=== PATIENT | female | born 2000 | race American Indian/Alaskan Native ===

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

== ENCOUNTER 2022-04-14 11:22 | Emergency (ER) | payer OTHER ==
[~2022-04-14] VITALS: Ht 167.6 cm; Wt 77.3 kg
[2022-04-14] MEDS ORDERED: SODIUM CHLORIDE 0.9% 1,000 ML IV ONE (11:45)
[2022-04-14] MEDS ORDERED: MAG HYDROX/AL HYDROX/SIMETH 30 ML SUSP UDCUP PO ONE (11:45)
[2022-04-14] MEDS ORDERED: KETOROLAC TROMETHAMINE 30 MG/ML VIAL IVP ONE (11:45)
[2022-04-14] MEDS ORDERED: FAMOTIDINE 10 MG/ML 2 ML VIAL IVP ONE (11:45)
[2022-04-14 12:07] LABS: BASOPHILS % (AUTO) 0.5 % (0.0-2.0); EOSINOPHILS % (AUTO) 2.8 % (1.0-6.0); HEMATOCRIT 36.8 % (36-46); HEMOGLOBIN 12.7 g/dL (12.0-16.0); LYMPHOCYTES # (AUTO) 1.9 K/uL (1.0-4.8); MEAN CORPUSCULAR HEMOGLOBIN 29.6 pg (26.0-34.0); MEAN CORPUSCULAR HGB CONC 34.4 G/dL (31.0-37.0); MEAN CORPUSCULAR VOLUME 86 fL (80-100); MONOCYTES # (AUTO) 0.7 K/uL (0.1-1.0); MONOCYTES % (AUTO) 8.6 % (2.0-9.0); NEUTROPHILS # (AUTO) 5.2 K/uL (1.8-7.7); NEUTROPHILS % (AUTO) 64.1 % (40.0-70.0); PLATELET COUNT (AUTO) 247 K/uL (150-450); RED BLOOD CELL COUNT(AUTO) 4.28 MIL/uL (4.00-5.20); RED CELL DISTRIBUTION WIDTH 14.2 % (11.5-14.5)
[2022-04-14 12:12] LABS: ANION GAP 8 mmol/L (8-16); CALCIUM, TOTAL 8.5 mg/dL (8.8-10.5); CARBON DIOXIDE 25 mmol/L (22-29); CHLORIDE 105 mmol/L (98-107); CREATININE 0.71 mg/dL (0.60-1.30); GLOMERULAR FILTR. RATE CALC > 60 mL/min (>60); GLUCOSE,RANDOM 98 mg/dL (70-110); POTASSIUM 4.2 mmol/L (3.5-5.1); SODIUM SERUM 138 mmol/L (136-145); UREA NITROGEN, BLOOD 17 mg/dL (7-18)
[2022-04-14] MEDS ORDERED: SODIUM CHLORIDE 0.9% 100 ML ONE (12:21)
[2022-04-14] MEDS ORDERED: IOHEXOL 350 MG/ML 100 ML VIAL ONE (12:21)
[2022-04-14 12:23] LABS: ALANINE AMINOTRANSFERASE 35 U/L (12-78); ALBUMIN 3.4 g/dL (3.4-5.0); ALKALINE PHOSPHATASE 78 U/L (46-116); ASPARTATE AMINOTRANSFERASE 25 U/L (15-37); BILIRUBIN,TOTAL 0.2 mg/dL (0.1-1.0); HCG,QUANTITATIVE < 1 mIU/mL (0-6); LIPASE 164 U/L (73-393); TOTAL PROTEIN, SERUM 6.5 g/dL (6.4-8.2)
[2022-04-14 13:45] VITALS: BP 133/76
== END 2022-04-14 14:25 | disposition home or self-care (01) ==
LOC: EMS 11:22
DX: K80.20 Calculus of gallbladder without cholecystitis without obstruction (principal); J45.909 Unspecified asthma, uncomplicated; F17.210 Nicotine dependence, cigarettes, uncomplicated; F12.90 Cannabis use, unspecified, uncomplicated; Z87.440 Personal history of urinary (tract) infections; Z87.898 Personal history of other specified conditions
CPT/HCPCS: 36415; 74177; 76700; 80053; 83690; 84702; 85025; 96361; 96374; 96375; 99285; J1885; J3490; J7030; J7050; Q9967

== ENCOUNTER 2022-04-15 18:16 | Emergency (ER) | payer OTHER ==
[~2022-04-15] VITALS: Ht 167.6 cm; Wt 77.3 kg
[2022-04-15] MEDS ORDERED: SODIUM CHLORIDE 0.9% 1,000 ML IV ONE (18:45)
[2022-04-15] MEDS ORDERED: KETOROLAC TROMETHAMINE 30 MG/ML VIAL IVP ONE (18:45)
[2022-04-15 18:58] LABS: BASOPHILS % (AUTO) 0.3 % (0.0-2.0); EOSINOPHILS % (AUTO) 1.4 % (1.0-6.0); HEMOGLOBIN 12.9 g/dL (12.0-16.0); LYMPHOCYTES # (AUTO) 1.6 K/uL (1.0-4.8); MEAN CORPUSCULAR HEMOGLOBIN 29.4 pg (26.0-34.0); MEAN CORPUSCULAR VOLUME 86 fL (80-100); MONOCYTES # (AUTO) 0.6 K/uL (0.1-1.0); MONOCYTES % (AUTO) 6.2 % (2.0-9.0); NEUTROPHILS # (AUTO) 7.8 K/uL (1.8-7.7); NEUTROPHILS % (AUTO) 76.1 % (40.0-70.0); PLATELET COUNT (AUTO) 258 K/uL (150-450); RED CELL DISTRIBUTION WIDTH 14.4 % (11.5-14.5)
[2022-04-15 19:08] LABS: ANION GAP 10 mmol/L (8-16); CALCIUM, TOTAL 8.6 mg/dL (8.8-10.5); CARBON DIOXIDE 27 mmol/L (22-29); CHLORIDE 103 mmol/L (98-107); CREATININE 0.72 mg/dL (0.60-1.30); GLOMERULAR FILTR. RATE CALC > 60 mL/min (>60); GLUCOSE,RANDOM 84 mg/dL (70-110); POTASSIUM 3.7 mmol/L (3.5-5.1); SODIUM SERUM 140 mmol/L (136-145); UREA NITROGEN, BLOOD 17 mg/dL (7-18)
[2022-04-15 19:13] LABS: ALANINE AMINOTRANSFERASE 56 U/L (12-78); ALBUMIN 3.8 g/dL (3.4-5.0); ALKALINE PHOSPHATASE 80 U/L (46-116); ASPARTATE AMINOTRANSFERASE 35 U/L (15-37); BILIRUBIN,TOTAL 0.2 mg/dL (0.1-1.0); LIPASE 156 U/L (73-393); TOTAL PROTEIN, SERUM 7.2 g/dL (6.4-8.2)
[2022-04-15 21:15] VITALS: BP 109/72
== END 2022-04-15 21:31 | disposition home or self-care (01) ==
LOC: EMS 18:20
DX: K80.70 Calculus of gallbladder and bile duct without cholecystitis without obstruction (principal); J45.909 Unspecified asthma, uncomplicated; F17.210 Nicotine dependence, cigarettes, uncomplicated; F12.90 Cannabis use, unspecified, uncomplicated; Z87.440 Personal history of urinary (tract) infections
CPT/HCPCS: 36415; 80053; 83690; 85025; 96361; 96374; 99283; J1885

== ENCOUNTER 2022-05-18 06:11 | Inpatient (IN) | payer MEDICAID, OTHER ==
[~2022-05-18] VITALS: Ht 167.6 cm; Wt 171.3 kg
[2022-05-18] MEDS ORDERED: FLUO10CA24 PO (06:32)
[2022-05-18 07:58] LABS: BASOPHILS % (AUTO) 0.3 % (0.0-2.0); EOSINOPHILS % (AUTO) 0.1 % (1.0-6.0); HEMATOCRIT 40.1 % (36-46); HEMOGLOBIN 13.8 g/dL (12.0-16.0); LYMPHOCYTES # (AUTO) 2.4 K/uL (1.0-4.8); MEAN CORPUSCULAR HEMOGLOBIN 29.4 pg (26.0-34.0); MEAN CORPUSCULAR HGB CONC 34.3 G/dL (31.0-37.0); MEAN CORPUSCULAR VOLUME 86 fL (80-100); MONOCYTES # (AUTO) 1.2 K/uL (0.1-1.0); MONOCYTES % (AUTO) 9.1 % (2.0-9.0); NEUTROPHILS # (AUTO) 9.8 K/uL (1.8-7.7); NEUTROPHILS % (AUTO) 72.5 % (40.0-70.0); PLATELET COUNT (AUTO) 386 K/uL (150-450); RED BLOOD CELL COUNT(AUTO) 4.68 MIL/uL (4.00-5.20)
[2022-05-18 08:04] LABS: ANION GAP 12 mmol/L (8-16); CALCIUM, TOTAL 9.6 mg/dL (8.8-10.5); CARBON DIOXIDE 25 mmol/L (22-29); CHLORIDE 100 mmol/L (98-107); CREATININE 0.81 mg/dL (0.60-1.30); GLOMERULAR FILTR. RATE CALC > 60 mL/min (>60); GLUCOSE,RANDOM 92 mg/dL (70-110); POTASSIUM 3.5 mmol/L (3.5-5.1); SODIUM SERUM 137 mmol/L (136-145); UREA NITROGEN, BLOOD 14 mg/dL (7-18)
[2022-05-18 08:14] LABS: SALICYLATE < 0.2 mg/dL (2.8-20.0)
[2022-05-18 08:19] LABS: ALANINE AMINOTRANSFERASE 35 U/L (12-78); ALBUMIN 4.2 g/dL (3.4-5.0); ALKALINE PHOSPHATASE 80 U/L (46-116); ASPARTATE AMINOTRANSFERASE 26 U/L (15-37); BILIRUBIN,TOTAL 1.3 mg/dL (0.1-1.0); HCG,QUANTITATIVE < 1 mIU/mL (0-6); THYROID STIMULATING HORMONE 0.96 uIU/mL (0.36-3.74); TOTAL PROTEIN, SERUM 7.9 g/dL (6.4-8.2)
[2022-05-18 08:20] LABS: ACETAMINOPHEN < 2 mcg/mL (10-30)
[2022-05-18 08:32] LABS: COVID AG,FIA SOURCE NASOPHARYNGEAL
[2022-05-18] MEDS ORDERED: LORazepam 2 MG TABLET PO ONE (08:45)
[2022-05-18 09:38] LABS: AMPHET/METH SCREEN,URINE POSITIVE (NEGATIVE); BARBITURATE SCREEN, URINE NEGATIVE (NEGATIVE); BENZODIAZEPINES SCREEN,URINE NEGATIVE (NEGATIVE); CANNABINOID SCREEN,URINE POSITIVE (NEGATIVE); COCAINE SCREEN,URINE POSITIVE (NEGATIVE); METHADONE SCREEN, URINE NEGATIVE (NEGATIVE); OPIATE SCREEN,URINE NEGATIVE (NEGATIVE); PHENCYCLIDINE SCREEN,URINE NEGATIVE (NEGATIVE)
[2022-05-18] MEDS ORDERED: HALOPERIDOL 5 MG TABLET PO PRN (12:15)
[2022-05-18 14:15] VITALS: BP 103/60
[2022-05-18 16:10] VITALS: BP 107/76
[2022-05-18] MEDS: LORazepam 2 MG TABLET PO PRN (19:04)
[2022-05-18] MEDS ORDERED: LOPERAMIDE HCL 2 MG CAPSULE PO PRN (20:30)
[2022-05-18] MEDS ORDERED: ACETAMINOPHEN 325 MG TABLET PO PRN (20:30)
[2022-05-18] MEDS ORDERED: BACITRACIN 28 GM OINTMENT TP PRN (20:30)
[2022-05-18] MEDS ORDERED: ONDANSETRON HCL 4 MG TABLET PO PRN (20:30)
[2022-05-18] MEDS ORDERED: MAGNESIUM HYDROXIDE SUSPENSION 30 ML UDCUP PO PRN (20:30)
[2022-05-18] MEDS ORDERED: DOCUSATE SODIUM 100 MG CAPSULE PO PRN (20:30)
[2022-05-18] MEDS ORDERED: CloNIDine HCL 0.1 MG TABLET PO PRN (20:30)
[2022-05-18] MEDS ORDERED: MAG HYDROX/AL HYDROX/SIMETH ES 30 ML SUSPENSION UDCUP PO PRN (20:30)
[2022-05-18] MEDS ORDERED: OMEPRAZOLE 20 MG CAPSULE PO PRN (20:30)
[2022-05-18] MEDS ORDERED: IBUPROFEN 600 MG TABLET PO PRN (20:30)
[2022-05-18] MEDS ORDERED: BENZOCAINE/MENTHOL LOZENGE PO PRN (20:30)
[2022-05-18] MEDS ORDERED: PETROLATUM,WHITE 28 GM JELLY TP PRN (20:30)
[2022-05-18] MEDS ORDERED: ALBUTEROL SULFATE HFA 90 MCG/PUFF 8 GM INHALER IH PRN (20:30)
[2022-05-19] MEDS: LORazepam 2 MG TABLET PO PRN ×2 (06:53→19:02)
[2022-05-19 08:00] VITALS: BP 109/60
[2022-05-19 17:14] VITALS: BP 107/72
[2022-05-19] MEDS ORDERED: FLUO20CA36 PO (18:41)
[2022-05-19 19:02] VITALS: BP 115/87
[2022-05-19] MEDS: ZOLPIDEM TARTRATE 10 MG TABLET PO PRN (20:31)
[2022-05-20 08:02] VITALS: BP 117/58
[2022-05-20] MEDS: CITALOPRAM HYDROBROMIDE 20 MG TABLET PO SCH (09:10)
[2022-05-20] MEDS: DIVALPROEX SODIUM 500 MG DR TABLET PO SCH ×2 (10:50→16:31)
[2022-05-20 16:42] VITALS: BP 105/74
[2022-05-20] MEDS: LORazepam 2 MG TABLET PO PRN (16:59)
[2022-05-20] MEDS: ZOLPIDEM TARTRATE 10 MG TABLET PO PRN (23:00)
[2022-05-21] MEDS: CITALOPRAM HYDROBROMIDE 20 MG TABLET PO SCH (09:06)
[2022-05-21] MEDS: DIVALPROEX SODIUM 500 MG DR TABLET PO SCH (09:06)
[2022-05-21] MEDS: LORazepam 2 MG TABLET PO PRN (09:08)
[2022-05-21 11:06] VITALS: BP 142/86
[2022-05-21] MEDS ORDERED: DIVA-112 PO (13:56)
[2022-05-21] MEDS ORDERED: CITA-144 PO (13:56)
== END 2022-05-21 15:15 | disposition home or self-care (01) | DRG 754 ==
LOC: EMS 06:12 → 3EI 12:35
PROVIDERS: ADMIT Psychiatry & Neurology Psychiatry; ATTEND Psychiatry & Neurology Psychiatry
DX: F32.9 Major depressive disorder, single episode, unspecified (principal); D72.829 Elevated white blood cell count, unspecified; F15.10 Other stimulant abuse, uncomplicated; F41.9 Anxiety disorder, unspecified; S41.112A Laceration without foreign body of left upper arm, initial encounter; T40.5X2A Poisoning by cocaine, intentional self-harm, initial encounter; Z20.822 Contact with and (suspected) exposure to COVID-19; X78.1XXA Intentional self-harm by knife, initial encounter; G47.00 Insomnia, unspecified; J45.909 Unspecified asthma, uncomplicated; Y93.89 Activity, other specified; Y92.098 Other place in other non-institutional residence as the place of occurrence of the external cause; Y99.8 Other external cause status; Z79.899 Other long term (current) drug therapy
CPT/HCPCS: 80053; 84443; 84702; 85025; 99285; G0480; G0481

== ENCOUNTER 2022-06-18 08:02 | Inpatient (IN) | payer MEDICAID, OTHER ==
[~2022-06-18] VITALS: Ht 167.6 cm; Wt 70.5 kg
[~2022-06-18 08:02] MED LIST changes: -ALBU8.5H8 IH; +CITA-144 PO; +DIVA-112 PO
[2022-06-18] MEDS ORDERED: KETOROLAC TROMETHAMINE 30 MG/ML VIAL IM ONE (08:30)
[2022-06-18] MEDS ORDERED: ONDANSETRON HCL 4 MG TABLET PO ONE (08:30)
[2022-06-18] MEDS ORDERED: ACETAMINOPHEN 500 MG TABLET PO ONE (08:30)
[2022-06-18] MEDS ORDERED: MAG HYDROX/AL HYDROX/SIMETH 30 ML SUSP UDCUP PO ONE (08:30)
[2022-06-18] MEDS ORDERED: FAMOTIDINE 20 MG TABLET PO ONE (08:30)
[2022-06-18 08:39] LABS: BASOPHILS % (AUTO) 0.6 % (0.0-2.0); EOSINOPHILS % (AUTO) 4.2 % (1.0-6.0); HEMATOCRIT 39.4 % (36-46); HEMOGLOBIN 13.4 g/dL (12.0-16.0); LYMPHOCYTES # (AUTO) 2.8 K/uL (1.0-4.8); LYMPHOCYTES % (AUTO) 36.5 % (22.0-44.0); MEAN CORPUSCULAR HEMOGLOBIN 29.6 pg (26.0-34.0); MEAN CORPUSCULAR HGB CONC 34.1 G/dL (31.0-37.0); MEAN CORPUSCULAR VOLUME 87 fL (80-100); MONOCYTES # (AUTO) 0.6 K/uL (0.1-1.0); MONOCYTES % (AUTO) 7.5 % (2.0-9.0); NEUTROPHILS # (AUTO) 3.9 K/uL (1.8-7.7); NEUTROPHILS % (AUTO) 51.2 % (40.0-70.0); PLATELET COUNT (AUTO) 272 K/uL (150-450); RED BLOOD CELL COUNT(AUTO) 4.53 MIL/uL (4.00-5.20); RED CELL DISTRIBUTION WIDTH 13.7 % (11.5-14.5)
[2022-06-18 09:02] LABS: ANION GAP 8 mmol/L (8-16); CALCIUM, TOTAL 9.2 mg/dL (8.8-10.5); CARBON DIOXIDE 29 mmol/L (22-29); CHLORIDE 103 mmol/L (98-107); CREATININE 0.81 mg/dL (0.60-1.30); GLOMERULAR FILTR. RATE CALC > 60 mL/min (>60); GLUCOSE,RANDOM 93 mg/dL (70-110); POTASSIUM 4.2 mmol/L (3.5-5.1); SODIUM SERUM 140 mmol/L (136-145); UREA NITROGEN, BLOOD 18 mg/dL (7-18)
[2022-06-18 09:06] LABS: ALANINE AMINOTRANSFERASE 500 U/L (12-78); ALBUMIN 3.7 g/dL (3.4-5.0); ALKALINE PHOSPHATASE 115 U/L (46-116); ASPARTATE AMINOTRANSFERASE 170 U/L (15-37); BILIRUBIN,TOTAL 0.3 mg/dL (0.1-1.0); HCG,QUANTITATIVE < 1 mIU/mL (0-6); LIPASE 218 U/L (73-393); TOTAL PROTEIN, SERUM 7.2 g/dL (6.4-8.2)
[2022-06-18 09:47] LABS: AMPHET/METH SCREEN,URINE NEGATIVE (NEGATIVE); BARBITURATE SCREEN, URINE NEGATIVE (NEGATIVE); BENZODIAZEPINES SCREEN,URINE NEGATIVE (NEGATIVE); CANNABINOID SCREEN,URINE POSITIVE (NEGATIVE); COCAINE SCREEN,URINE NEGATIVE (NEGATIVE); METHADONE SCREEN, URINE NEGATIVE (NEGATIVE); OPIATE SCREEN,URINE NEGATIVE (NEGATIVE)
[2022-06-18 09:49] LABS: PHENCYCLIDINE SCREEN,URINE NEGATIVE (NEGATIVE)
[2022-06-18 10:09] LABS: CREATINE KINASE, TOTAL ONLY 73 U/L (26-192)
[2022-06-18] MEDS ORDERED: PIPERACILLIN/TAZO 3.375 GM/D5W 50 ML IV ONE (10:15)
[2022-06-18] MEDS ORDERED: SODIUM CHLORIDE 0.9% 1,000 ML IV ONE (10:45)
[2022-06-18] MEDS ORDERED: ACETAMINOPHEN 325 MG TABLET PO PRN (10:45)
[2022-06-18] MEDS ORDERED: GADOTERATE MEGLUMINE 10 MMOL/20 ML VIAL IVP ONE (10:56)
[2022-06-18 11:17] LABS: APPEARANCE,URINE CLEAR (CLEAR); BILIRUBIN,URINE NEGATIVE (NEGATIVE); GLUCOSE, URINE (UA) NEGATIVE (NEGATIVE); KETONES,URINE NEGATIVE (NEGATIVE); LEUKOCYTE ESTERASE ,URINE TRACE (NEGATIVE); NITRATE,URINE NEGATIVE (NEGATIVE); OCCULT BLOOD,URINE NEGATIVE (NEGATIVE); PH,URINE 6.5 (5.0-8.0); PROTEIN,URINE NEGATIVE (NEGATIVE); SPECIFIC GRAVITIY, URINE 1.022 (1.003-1.030); UROBILINOGEN,URINE <=1.0 mg/dL (<=1.0)
[2022-06-18 11:46] LABS: BACTERIA,URINE None Seen /HPF (None Seen); RBC,URINE None Seen /HPF (0-2); SQUAMOUS EPITHELIAL CELL,UR Moderate /LPF (None Seen); WBC,URINE 0-2 /HPF (0-5)
[2022-06-18] MEDS: PANTOPRAZOLE SODIUM 40 MG/VIAL IVP SCH (11:51)
[2022-06-18 12:58] VITALS: BP 107/61
[2022-06-18] MEDS: MORPHINE SULFATE 2 MG/ML SYRINGE IVP PRN (13:22)
[2022-06-18] MEDS: ONDANSETRON HCL 4 MG/2 ML VIAL IVP PRN (13:32)
[2022-06-18 16:00] VITALS: BP_SYST 142; BP_SYST 95; BP_DIAS 45; BP_DIAS 69
[2022-06-18 16:18] LABS: COVID AG,FIA SOURCE NASOPHARYNGEAL
[2022-06-18 20:00] VITALS: BP 101/60
[2022-06-18] MEDS: DOCUSATE SODIUM 100 MG CAPSULE PO SCH (21:00)
[2022-06-19] MEDS: MORPHINE SULFATE 2 MG/ML SYRINGE IVP PRN ×3 (02:39→20:17)
[2022-06-19] MEDS: ONDANSETRON HCL 4 MG/2 ML VIAL IVP PRN (02:39)
[2022-06-19 05:00] VITALS: BP 99/74
[2022-06-19] MEDS ORDERED: SODIUM CHLORIDE 0.9% 0 ML ONE (05:28)
[2022-06-19] MEDS ORDERED: IOHEXOL 240 MG/ML 20 ML VIAL ONE (05:28)
[2022-06-19] MEDS ORDERED: LIDOCAINE 2%/EPI 1:200,000/PF 20 ML VIAL ONE (05:28)
[2022-06-19] MEDS ORDERED: BUPIVACAINE HCL/PF 0.5% 30 ML VIAL ONE (05:28)
[2022-06-19] MEDS ORDERED: RINGERS SOLUTION,LACTATED 1,000 ML IV ONE (06:00)
[2022-06-19] MEDS ORDERED: SUGAMMADEX SODIUM 200 MG/2 ML VIAL IVP ONE (07:59)
[2022-06-19 08:02] VITALS: BP 102/76
[2022-06-19] MEDS ORDERED: ACETAMINOPHEN 500 MG TABLET PO PRN (08:15)
[2022-06-19] MEDS ORDERED: ONDANSETRON HCL 4 MG/2 ML VIAL IVP PRN (08:15)
[2022-06-19] MEDS ORDERED: IBUPROFEN 800 MG TABLET PO PRN (08:15)
[2022-06-19] MEDS ORDERED: HYDROCODONE/ACETAMINOPHEN 5-325 MG TABLET PO PRN (08:15)
[2022-06-19] MEDS: MetroNIDAZOLE 500 MG/NACL 100 ML IV SCH ×2 (08:23→17:35)
[2022-06-19] MEDS ORDERED: FentaNYL CITRATE PF 100 MCG/2 ML VIAL IVP PRN (08:45)
[2022-06-19] MEDS ORDERED: HYDROmorphone 2 MG/ML VIAL IVP PRN (08:45)
[2022-06-19] MEDS ORDERED: FentaNYL CITRATE PF 100 MCG/2 ML VIAL ONE (08:48)
[2022-06-19] MEDS: DOCUSATE SODIUM 100 MG CAPSULE PO SCH (09:00)
[2022-06-19] MEDS ORDERED: SODIUM CHLORIDE 0.9% 250 ML IV ONE (09:31)
[2022-06-19] MEDS: CeFAZolin 1 GM/DEXTROSE 50 ML IV SCH ×2 (09:40→16:46)
[2022-06-19] MEDS ORDERED: MIDAZOLAM HCL 2 MG/2 ML VIAL IVP ONE (12:00)
[2022-06-19] MEDS ORDERED: FentaNYL CITRATE PF 100 MCG/2 ML VIAL IVP ONE (12:00)
[2022-06-19] MEDS: PANTOPRAZOLE SODIUM 40 MG/VIAL IVP SCH (12:03)
[2022-06-19 15:53] VITALS: BP 111/60
[2022-06-19 20:00] VITALS: BP 108/53
[2022-06-19] MEDS ORDERED: OXYGEN THERAPY IH SCH (20:00)
== END 2022-06-19 20:30 | disposition home or self-care (01) | DRG 263 ==
LOC: EMS 08:02 → 6S 10:20
PROVIDERS: ADMIT Internal Medicine; ATTEND Internal Medicine
PROC: 0FT44ZZ Resection of Gallbladder, Percutaneous Endoscopic Approach (ICD-10-PCS; principal; 2022-06-19 07:00)
DX: K80.12 Calculus of gallbladder with acute and chronic cholecystitis without obstruction (principal); F31.9 Bipolar disorder, unspecified; R74.01 Elevation of levels of liver transaminase levels; Z20.822 Contact with and (suspected) exposure to COVID-19; J45.909 Unspecified asthma, uncomplicated; Z79.899 Other long term (current) drug therapy; Z82.5 Family history of asthma and other chronic lower respiratory diseases; Z83.3 Family history of diabetes mellitus
CPT/HCPCS: 74183; 76700; 80053; 81001; 82550; 83605; 83690; 84484; 84702; 85025; 87081; 93005; 99285; C9113; G0378; J0690; J1885; J2250; J2270; J2405; J2543; J3010; J3490; J7030; J7050; J7120; Q0162; Q9966; Q9967

== ENCOUNTER 2022-07-11 10:57 | Emergency (ER) | payer OTHER ==
[~2022-07-11] VITALS: Ht 167.6 cm; Wt 77.3 kg
[2022-07-11 12:47] VITALS: BP 110/70
== END 2022-07-11 13:22 | disposition home or self-care (01) ==
LOC: EMS 10:57
DX: S31.113D Laceration without foreign body of abdominal wall, right lower quadrant without penetration into peritoneal cavity, subsequent encounter (principal); Z48.02 Encounter for removal of sutures; F32.9 Major depressive disorder, single episode, unspecified; F12.90 Cannabis use, unspecified, uncomplicated; F10.20 Alcohol dependence, uncomplicated; F11.90 Opioid use, unspecified, uncomplicated; J45.909 Unspecified asthma, uncomplicated; X58.XXXD Exposure to other specified factors, subsequent encounter; Z87.440 Personal history of urinary (tract) infections; Z87.19 Personal history of other diseases of the digestive system
CPT/HCPCS: 99282; Z7502

== ENCOUNTER 2022-08-13 00:27 | Inpatient (IN) | payer OTHER ==
[~2022-08-13] VITALS: Ht 167.6 cm; Wt 72.7 kg
[2022-08-13] MEDS ORDERED: MethylPREDNISolone SOD SUCC 125 MG/2 ML VIAL IVP ONE (01:15)
[2022-08-13] MEDS ORDERED: SODIUM CHLORIDE 0.9% 1,000 ML IV ONE ×2 (01:30→09:45)
[2022-08-13 01:38] LABS: BASOPHILS % (AUTO) 0.4 % (0.0-2.0); EOSINOPHILS % (AUTO) 1.3 % (1.0-6.0); HEMATOCRIT 35.6 % (36-46); HEMOGLOBIN 11.8 g/dL (12.0-16.0); LYMPHOCYTES # (AUTO) 3.5 K/uL (1.0-4.8); LYMPHOCYTES % (AUTO) 39.7 % (22.0-44.0); MEAN CORPUSCULAR HEMOGLOBIN 29.4 pg (26.0-34.0); MEAN CORPUSCULAR HGB CONC 33.2 G/dL (31.0-37.0); MEAN CORPUSCULAR VOLUME 88 fL (80-100); MONOCYTES # (AUTO) 0.6 K/uL (0.1-1.0); MONOCYTES % (AUTO) 6.7 % (2.0-9.0); NEUTROPHILS # (AUTO) 4.6 K/uL (1.8-7.7); NEUTROPHILS % (AUTO) 51.9 % (40.0-70.0); PLATELET COUNT (AUTO) 279 K/uL (150-450); RED BLOOD CELL COUNT(AUTO) 4.03 MIL/uL (4.00-5.20); RED CELL DISTRIBUTION WIDTH 13.9 % (11.5-14.5)
[2022-08-13 01:48] LABS: ANION GAP 1 mmol/L (8-16); CALCIUM, TOTAL 8.1 mg/dL (8.8-10.5); CARBON DIOXIDE 26 mmol/L (22-29); CHLORIDE 103 mmol/L (98-107); CREATININE 0.97 mg/dL (0.60-1.30); GLUCOSE,RANDOM 207 mg/dL (70-110); POTASSIUM 3.1 mmol/L (3.5-5.1); SODIUM SERUM 130 mmol/L (136-145); UREA NITROGEN, BLOOD 13 mg/dL (7-18)
[2022-08-13 01:49] LABS: GLOMERULAR FILTR. RATE CALC > 60 mL/min (>60)
[2022-08-13 01:54] LABS: ALANINE AMINOTRANSFERASE 20 U/L (12-78); ALBUMIN 3.1 g/dL (3.4-5.0); ALKALINE PHOSPHATASE 62 U/L (46-116); ASPARTATE AMINOTRANSFERASE 16 U/L (15-37); BILIRUBIN,TOTAL 0.2 mg/dL (0.1-1.0); TOTAL PROTEIN, SERUM 5.7 g/dL (6.4-8.2)
[2022-08-13] MEDS ORDERED: EPINEPHrine 1:1,000 [1 MG/ML] VIAL ONE (04:23)
[2022-08-13] MEDS ORDERED: SODIUM CHLORIDE 0.9% 100 ML ONE (04:23)
[2022-08-13] MEDS ORDERED: FAMOTIDINE 10 MG/ML 2 ML VIAL ONE (04:23)
[2022-08-13] MEDS ORDERED: FAMOTIDINE 40 MG in SODIUM CHLORIDE 0.9% 100 ML IV ONE (04:30)
[2022-08-13] MEDS ORDERED: EPINEPHrine 1:1,000 [1 MG/ML] VIAL IM ONE (05:00)
[2022-08-13] MEDS ORDERED: PRED-554 PO (06:04)
[2022-08-13] MEDS ORDERED: EPIN0.3P3 IM (06:05)
[2022-08-13] MEDS ORDERED: DIPH25CA85 PO (06:06)
[2022-08-13 09:20] LABS: APPEARANCE,URINE CLEAR (CLEAR); BILIRUBIN,URINE NEGATIVE (NEGATIVE); GLUCOSE, URINE (UA) 70-100 mg/dL (NEGATIVE); KETONES,URINE NEGATIVE (NEGATIVE); LEUKOCYTE ESTERASE ,URINE NEGATIVE (NEGATIVE); NITRATE,URINE NEGATIVE (NEGATIVE); OCCULT BLOOD,URINE NEGATIVE (NEGATIVE); PROTEIN,URINE NEGATIVE (NEGATIVE); SPECIFIC GRAVITIY, URINE 1.021 (1.003-1.030); UROBILINOGEN,URINE <=1.0 mg/dL (<=1.0)
[2022-08-13 09:33] LABS: RBC,URINE 0-2 /HPF (0-2)
[2022-08-13 09:34] LABS: BACTERIA,URINE Few /HPF (None Seen); SQUAMOUS EPITHELIAL CELL,UR Few /LPF (None Seen); WBC,URINE 0-2 /HPF (0-5)
[2022-08-13] MEDS ORDERED: POTASSIUM CHL 10 MEQ/WATER 50 ML IV PRN (09:45)
[2022-08-13] MEDS ORDERED: ACETAMINOPHEN 325 MG TABLET PO PRN (09:45)
[2022-08-13] MEDS: PANTOPRAZOLE SODIUM 40 MG/VIAL IVP SCH (09:45)
[2022-08-13] MEDS ORDERED: DEXTROSE 50%-WATER 25 GM/50 ML SYRINGE IVP PRN (09:45)
[2022-08-13] MEDS ORDERED: LORazepam 2 MG/ML VIAL IVP PRN (09:45)
[2022-08-13] MEDS ORDERED: ONDANSETRON HCL 4 MG/2 ML VIAL IVP PRN (09:45)
[2022-08-13] MEDS ORDERED: INSULIN LISPRO 100 UNITS/ML SQ PRN (09:45)
[2022-08-13] MEDS ORDERED: POTASSIUM CHLORIDE 20 MEQ ER TABLET PO PRN (09:45)
[2022-08-13] MEDS ORDERED: DiphenhydrAMINE HCL 50 MG/ML VIAL IVP ONE (10:45)
[2022-08-13] MEDS: MethylPREDNISolone SOD SUCC 40 MG/ML VIAL IVP SCH ×3 (12:02→23:10)
[2022-08-13 13:47] LABS: COVID AG,FIA SOURCE NASAL SWAB
[2022-08-13] MEDS: DiphenhydrAMINE HCL 50 MG/ML VIAL IVP PRN ×2 (14:59→17:24)
[2022-08-13 15:14] VITALS: BP 129/72
[2022-08-13] MEDS: HEPARIN SODIUM,PORCINE 5,000 UNITS/ML VIAL SQ SCH ×2 (17:24→23:11)
[2022-08-13] MEDS: DOCUSATE SODIUM 100 MG CAPSULE PO SCH (20:14)
[2022-08-13 20:16] LABS: GLUCOMETER DEV NAME(LOC) 5S.2B; GLUCOSE,POINT OF CARE 119 MG/DL (70-110)
[2022-08-13 20:17] VITALS: BP 118/81
[2022-08-13 21:17] LABS: GLUCOMETER DEV NAME(LOC) 5S.2B; GLUCOSE,POINT OF CARE 117 MG/DL (70-110)
[2022-08-13] MEDS ORDERED: FAMOTIDINE 10 MG/ML 2 ML VIAL IVP ONE (22:00)
[2022-08-13] MEDS ORDERED: CETIRIZINE HCL 10 MG TABLET PO ONE (22:00)
[2022-08-14 00:50] VITALS: BP 105/48
[2022-08-14 04:13] VITALS: BP 112/52
[2022-08-14] MEDS: MethylPREDNISolone SOD SUCC 40 MG/ML VIAL IVP SCH ×2 (05:59→12:14)
[2022-08-14 06:36] LABS: GLUCOMETER DEV NAME(LOC) 5S.2B; GLUCOSE,POINT OF CARE 114 MG/DL (70-110)
[2022-08-14 07:34] VITALS: BP 126/69
[2022-08-14 07:36] LABS: ANION GAP 5 mmol/L (8-16); CALCIUM, TOTAL 9.3 mg/dL (8.8-10.5); CARBON DIOXIDE 28 mmol/L (22-29); CHLORIDE 107 mmol/L (98-107); GLUCOSE,RANDOM 116 mg/dL (70-110); POTASSIUM 3.8 mmol/L (3.5-5.1); SODIUM SERUM 140 mmol/L (136-145); UREA NITROGEN, BLOOD 5 mg/dL (7-18)
[2022-08-14 07:45] LABS: GLOMERULAR FILTR. RATE CALC > 60 mL/min (>60)
[2022-08-14] MEDS: HEPARIN SODIUM,PORCINE 5,000 UNITS/ML VIAL SQ SCH ×2 (08:16→16:00)
[2022-08-14] MEDS: PANTOPRAZOLE SODIUM 40 MG/VIAL IVP SCH (08:16)
[2022-08-14] MEDS: DOCUSATE SODIUM 100 MG CAPSULE PO SCH (08:30)
[2022-08-14] MEDS ORDERED: FAMOTIDINE 10 MG/ML 2 ML VIAL IVP SCH (09:00)
[2022-08-14 10:42] VITALS: BP 118/74
[2022-08-14] MEDS: DiphenhydrAMINE HCL 50 MG/ML VIAL IVP PRN (12:14)
== END 2022-08-14 16:40 | disposition home or self-care (01) | DRG 916 ==
LOC: EMS 00:28 → 5S 13:09 → 5N 14:51
PROVIDERS: ADMIT Internal Medicine; ATTEND Internal Medicine
DX: T78.2XXA Anaphylactic shock, unspecified, initial encounter (principal); E87.6 Hypokalemia; F31.9 Bipolar disorder, unspecified; F41.9 Anxiety disorder, unspecified; Z20.822 Contact with and (suspected) exposure to COVID-19; J45.909 Unspecified asthma, uncomplicated; R73.9 Hyperglycemia, unspecified; T38.0X5A Adverse effect of glucocorticoids and synthetic analogues, initial encounter; F99 Mental disorder, not otherwise specified; Z82.5 Family history of asthma and other chronic lower respiratory diseases; Z83.3 Family history of diabetes mellitus; Z87.891 Personal history of nicotine dependence; Z79.899 Other long term (current) drug therapy; Z90.49 Acquired absence of other specified parts of digestive tract; Y92.89 Other specified places as the place of occurrence of the external cause
CPT/HCPCS: 80048; 80053; 81001; 82962; 84703; 85025; 99291; C9113; J0171; J1200; J1644; J2060; J2920; J2930; J3490; J7050

== ENCOUNTER 2023-03-16 11:29 | Emergency (ER) | payer OTHER ==
[~2023-03-16] VITALS: Ht 165.1 cm; Wt 70.9 kg
[2023-03-16] MEDS ORDERED: ONDANSETRON HCL 4 MG/2 ML VIAL IVP ONE (12:30)
[2023-03-16] MEDS ORDERED: SODIUM CHLORIDE 0.9% 1,000 ML IV ONE (12:30)
[2023-03-16 12:57] LABS: AMPHET/METH SCREEN,URINE NEGATIVE (NEGATIVE); BARBITURATE SCREEN, URINE NEGATIVE (NEGATIVE); BENZODIAZEPINES SCREEN,URINE NEGATIVE (NEGATIVE); CANNABINOID SCREEN,URINE POSITIVE (NEGATIVE); COCAINE SCREEN,URINE NEGATIVE (NEGATIVE); METHADONE SCREEN, URINE NEGATIVE (NEGATIVE); OPIATE SCREEN,URINE NEGATIVE (NEGATIVE); PHENCYCLIDINE SCREEN,URINE NEGATIVE (NEGATIVE)
[2023-03-16 13:04] LABS: BASOPHILS % (AUTO) 0.3 % (0.0-2.0); HEMATOCRIT 42.6 % (36-46); HEMOGLOBIN 14.4 g/dL (12.0-16.0); LYMPHOCYTES # (AUTO) 1.5 K/uL (1.0-4.8); LYMPHOCYTES % (AUTO) 18.4 % (22.0-44.0); MEAN CORPUSCULAR HEMOGLOBIN 30.5 pg (26.0-34.0); MEAN CORPUSCULAR HGB CONC 33.8 G/dL (31.0-37.0); MEAN CORPUSCULAR VOLUME 90 fL (80-100); MONOCYTES # (AUTO) 0.6 K/uL (0.1-1.0); MONOCYTES % (AUTO) 7.7 % (2.0-9.0); NEUTROPHILS % (AUTO) 72.6 % (40.0-70.0); PLATELET COUNT (AUTO) 271 K/uL (150-450); RED BLOOD CELL COUNT(AUTO) 4.72 MIL/uL (4.00-5.20); RED CELL DISTRIBUTION WIDTH 13.9 % (11.5-14.5)
[2023-03-16 13:12] LABS: ANION GAP 6 mmol/L (8-16); CALCIUM, TOTAL 9.8 mg/dL (8.8-10.5); CARBON DIOXIDE 26 mmol/L (22-29); CHLORIDE 105 mmol/L (98-107); CREATININE 0.67 mg/dL (0.60-1.30); GLOMERULAR FILTR. RATE CALC > 60 mL/min (>60); GLUCOSE,RANDOM 94 mg/dL (70-110); POTASSIUM 3.9 mmol/L (3.5-5.1); SODIUM SERUM 137 mmol/L (136-145); UREA NITROGEN, BLOOD 15 mg/dL (7-18)
[2023-03-16 13:18] LABS: ALANINE AMINOTRANSFERASE 19 U/L (12-78); ALBUMIN 4.3 g/dL (3.4-5.0); ALKALINE PHOSPHATASE 88 U/L (46-116); ASPARTATE AMINOTRANSFERASE 14 U/L (15-37); BILIRUBIN,TOTAL 0.8 mg/dL (0.1-1.0); TOTAL PROTEIN, SERUM 7.7 g/dL (6.4-8.2)
[2023-03-16 15:10] VITALS: BP 146/72
== END 2023-03-16 15:25 | disposition home or self-care (01) ==
LOC: EMS 11:29
DX: S61.511A Laceration without foreign body of right wrist, initial encounter (principal); S40.021A Contusion of right upper arm, initial encounter; S00.33XA Contusion of nose, initial encounter; F32.A Depression, unspecified; F69 Unspecified disorder of adult personality and behavior; J45.909 Unspecified asthma, uncomplicated; F17.210 Nicotine dependence, cigarettes, uncomplicated; Z65.4 Victim of crime and terrorism; Z90.49 Acquired absence of other specified parts of digestive tract; X83.8XXA Intentional self-harm by other specified means, initial encounter; Y93.89 Activity, other specified; Y92.89 Other specified places as the place of occurrence of the external cause; Y99.8 Other external cause status
CPT/HCPCS: 99285; 96374; 70450; 96361; 80053; 84703; 85025; 36415; 80307 ×2; G0480; J2405; J7030

== ENCOUNTER 2023-08-03 00:03 | Inpatient (IN) | payer OTHER, MEDICAID ==
[~2023-08-03] VITALS: Ht 167.6 cm; Wt 65.0 kg
[2023-08-03 01:29] LABS: BASOPHILS % (AUTO) 0.5 % (0.0-2.0); EOSINOPHILS % (AUTO) 0.1 % (1.0-6.0); HEMOGLOBIN 13.6 g/dL (12.0-16.0); LYMPHOCYTES # (AUTO) 2.2 K/uL (1.0-4.8); LYMPHOCYTES % (AUTO) 26.1 % (22.0-44.0); MEAN CORPUSCULAR HEMOGLOBIN 30.9 pg (26.0-34.0); MEAN CORPUSCULAR HGB CONC 34.1 G/dL (31.0-37.0); MEAN CORPUSCULAR VOLUME 91 fL (80-100); MONOCYTES # (AUTO) 0.4 K/uL (0.1-1.0); NEUTROPHILS # (AUTO) 5.6 K/uL (1.8-7.7); NEUTROPHILS % (AUTO) 68.3 % (40.0-70.0); PLATELET COUNT (AUTO) 298 K/uL (150-450); RED BLOOD CELL COUNT(AUTO) 4.41 MIL/uL (4.00-5.20); RED CELL DISTRIBUTION WIDTH 12.7 % (11.5-14.5); WHITE BLOOD COUNT (AUTO) 8.3 K/uL (4.5-11.0)
[2023-08-03 01:41] LABS: PROTHROMBIN TIME 10.9 SEC (9.4-11.6)
[2023-08-03 01:43] LABS: ANION GAP 14 mmol/L (8-16); CARBON DIOXIDE 23 mmol/L (22-29); CHLORIDE 104 mmol/L (98-107); CREATININE 0.64 mg/dL (0.60-1.30); GLOMERULAR FILTR. RATE CALC > 60 mL/min (>60); GLUCOSE,RANDOM 84 mg/dL (70-110); POTASSIUM 3.6 mmol/L (3.5-5.1); SODIUM SERUM 140 mmol/L (136-145); UREA NITROGEN, BLOOD 10 mg/dL (7-18)
[2023-08-03 01:48] LABS: ALANINE AMINOTRANSFERASE 13 U/L (12-78); ALKALINE PHOSPHATASE 85 U/L (46-116); ASPARTATE AMINOTRANSFERASE 17 U/L (15-37); BILIRUBIN,TOTAL 0.8 mg/dL (0.1-1.0); TOTAL PROTEIN, SERUM 7.3 g/dL (6.4-8.2)
[2023-08-03] MEDS ORDERED: KETOROLAC TROMETHAMINE 30 MG/ML VIAL IVP ONE (02:00)
[2023-08-03] MEDS ORDERED: ONDANSETRON HCL 4 MG/2 ML VIAL IVP ONE (02:00)
[2023-08-03] MEDS ORDERED: FentaNYL CITRATE PF 100 MCG/2 ML VIAL IVP ONE (02:00)
[2023-08-03] MEDS ORDERED: LORazepam 2 MG/ML VIAL IVP ONE (03:30)
[2023-08-03] MEDS ORDERED: HALOPERIDOL LACTATE 5 MG/ML VIAL ONE (03:36)
[2023-08-03] MEDS ORDERED: HALOPERIDOL LACTATE 5 MG/ML VIAL IM ONE (03:45)
[2023-08-03] MEDS ORDERED: DiphenhydrAMINE HCL 50 MG/ML VIAL IM ONE (03:45)
[2023-08-03 08:15] LABS: COVID AG,FIA SOURCE NASAL SWAB
[2023-08-03 08:44] LABS: SARS-COV2 (COVID) ANTIGEN,FIA Negative (Negative)
[2023-08-03 18:15] LABS: APPEARANCE,URINE CLEAR (CLEAR); BILIRUBIN,URINE NEGATIVE (NEGATIVE); COLOR,URINE YELLOW (YELLOW); GLUCOSE, URINE (UA) NEGATIVE (NEGATIVE); KETONES,URINE 40-60 mg/dL (NEGATIVE); LEUKOCYTE ESTERASE ,URINE NEGATIVE (NEGATIVE); NITRATE,URINE NEGATIVE (NEGATIVE); OCCULT BLOOD,URINE NEGATIVE (NEGATIVE); PROTEIN,URINE 30-70 mg/dL (NEGATIVE); SPECIFIC GRAVITIY, URINE 1.032 (1.003-1.030); UROBILINOGEN,URINE <=1.0 mg/dL (<=1.0)
[2023-08-03] MEDS: LORazepam 2 MG TABLET PO PRN (18:22)
[2023-08-04] MEDS ORDERED: ACETAMINOPHEN 325 MG TABLET PO ONE (07:15)
[2023-08-04] MEDS: LORazepam 2 MG TABLET PO PRN ×3 (07:37→19:44)
[2023-08-04] MEDS: HALOPERIDOL 5 MG TABLET PO PRN ×3 (07:38→19:44)
[2023-08-04] MEDS: ZOLPIDEM TARTRATE 10 MG TABLET PO PRN (19:46)
[2023-08-04 23:30] VITALS: BP 111/70; PULSE 107; RESP 18; TEMP 97.7; O2SAT 97
[2023-08-05] MEDS ORDERED: ONDANSETRON HCL 4 MG TABLET PO PRN (06:45)
[2023-08-05] MEDS ORDERED: MAG HYDROX/AL HYDROX/SIMETH ES 30 ML SUSPENSION UDCUP PO PRN (06:45)
[2023-08-05] MEDS ORDERED: ACETAMINOPHEN 325 MG TABLET PO PRN (06:45)
[2023-08-05] MEDS ORDERED: DOCUSATE SODIUM 100 MG CAPSULE PO PRN (06:45)
[2023-08-05] MEDS ORDERED: MAGNESIUM HYDROXIDE SUSPENSION 30 ML UDCUP PO PRN (06:45)
[2023-08-05] MEDS ORDERED: ALBUTEROL SULFATE HFA 90 MCG/PUFF 8 GM INHALER IH PRN (06:45)
[2023-08-05] MEDS ORDERED: BENZOCAINE/MENTHOL LOZENGE PO PRN (06:45)
[2023-08-05] MEDS ORDERED: IBUPROFEN 600 MG TABLET PO PRN (06:45)
[2023-08-05] MEDS ORDERED: OMEPRAZOLE 20 MG CAPSULE PO PRN (06:45)
[2023-08-05] MEDS ORDERED: PETROLATUM,WHITE 28 GM JELLY TP PRN (06:45)
[2023-08-05] MEDS ORDERED: BACITRACIN 28 GM OINTMENT TP PRN (06:45)
[2023-08-05] MEDS ORDERED: LOPERAMIDE HCL 2 MG CAPSULE PO PRN (06:45)
[2023-08-05] MEDS ORDERED: CloNIDine HCL 0.1 MG TABLET PO PRN (06:45)
[2023-08-05] MEDS: BACITRACIN ZINC/POLYMYXIN B 14.2 GM OINTMENT TP SCH (09:00)
[2023-08-05] MEDS: LORazepam 2 MG TABLET PO PRN ×3 (09:57→21:44)
[2023-08-05] MEDS: HALOPERIDOL 5 MG TABLET PO PRN ×2 (09:57→16:54)
[2023-08-05 14:06] VITALS: BP 128/71; PULSE 72; RESP 18; TEMP 98
[2023-08-05 15:06] VITALS: BP 129/78; PULSE 71; RESP 17; TEMP 98
[2023-08-05 21:26] VITALS: BP 124/82; PULSE 84; RESP 18; TEMP 97.6; O2SAT 98
[2023-08-05] MEDS: ZOLPIDEM TARTRATE 10 MG TABLET PO PRN (21:44)
[2023-08-06] MEDS: LORazepam 2 MG TABLET PO PRN ×2 (07:31→13:22)
[2023-08-06] MEDS: HALOPERIDOL 5 MG TABLET PO PRN ×2 (07:31→13:22)
[2023-08-06] MEDS: BACITRACIN ZINC/POLYMYXIN B 14.2 GM OINTMENT TP SCH (07:32)
[2023-08-06] MEDS ORDERED: DIVALPROEX SODIUM 500 MG DR TABLET PO SCH (09:00)
[2023-08-06 09:47] VITALS: BP 108/71; PULSE 70; RESP 18; TEMP 98.3; O2SAT 98
[2023-08-06] MEDS ORDERED: DIVA-112 PO (16:23)
== END 2023-08-06 19:00 | disposition home or self-care (01) | DRG 885 ==
LOC: EMS 00:03 → 3EI 08-04 22:03
PROVIDERS: ADMIT Internal Medicine; ATTEND Psychiatry & Neurology Psychiatry
DX: F31.9 Bipolar disorder, unspecified (principal); R45.851 Suicidal ideations; F41.9 Anxiety disorder, unspecified; G47.00 Insomnia, unspecified; J45.909 Unspecified asthma, uncomplicated; K59.00 Constipation, unspecified; S60.512A Abrasion of left hand, initial encounter; S00.81XA Abrasion of other part of head, initial encounter; S20.111A Abrasion of breast, right breast, initial encounter; S20.311A Abrasion of right front wall of thorax, initial encounter; F19.10 Other psychoactive substance abuse, uncomplicated; F10.90 Alcohol use, unspecified, uncomplicated; Y90.4 Blood alcohol level of 80-99 mg/100 ml; S30.811A Abrasion of abdominal wall, initial encounter; Z20.822 Contact with and (suspected) exposure to COVID-19; S90.512A Abrasion, left ankle, initial encounter; S60.511A Abrasion of right hand, initial encounter; F17.210 Nicotine dependence, cigarettes, uncomplicated; Y93.89 Activity, other specified; Y92.89 Other specified places as the place of occurrence of the external cause; Y99.8 Other external cause status; Z87.440 Personal history of urinary (tract) infections; Z90.49 Acquired absence of other specified parts of digestive tract
CPT/HCPCS: 70450; 70486; 71250; 72125; 72192; 74150; 80053; 81003; 84703; 85025; 85610; 85730; 99291; G0480; J1630; J1885; J2060; J2405; J3010; Q9967